=== PATIENT | female | born 1985 | race Caucasian/White ===

== ENCOUNTER 2024-08-22 09:46 | Outpatient (CLI) | payer BC ==
[2024-08-22] MEDS ORDERED: Magnevist 469MG/ML 20 ML VIAL ONE (11:39)
== END 2024-08-22 09:47 | disposition home or self-care (01) ==
LOC: CSHMRI 09:46
DX: R10.2 Pelvic and perineal pain (principal); Z90.710 Acquired absence of both cervix and uterus
CPT/HCPCS: 72197